=== PATIENT | female | born 1960 | race Caucasian/White ===

== ENCOUNTER 2018-09-09 13:20 | Emergency (ER) | payer MEDICAID ==
[~2018-09-09] VITALS: Ht 162.6 cm; Wt 71.0 kg
[2018-09-09 13:29] VITALS: BP 122/94
[2018-09-09] MEDS ORDERED: CLIN150C8 PO (14:09)
[2018-09-10] MEDS ORDERED: iohexol 300mg/ml 100ml inj. ONE (06:34)
== END 2018-09-09 14:26 | disposition home or self-care (01) ==
LOC: ER 13:20
DX: R22.0 Localized swelling, mass and lump, head (principal); Z79.2 Long term (current) use of antibiotics
CPT/HCPCS: 99283; Q9967